=== PATIENT | female | born 1955 | race Caucasian/White ===

== ENCOUNTER 2016-12-13 15:57 | Inpatient (IN) | payer MEDICAID ==
--- NOTE | 2016-12-13 15:58 | ED Physician Chart ---
Chief Complaint/HPI - Patient Information Date Seen:: 12/13/16 Time Seen:: 15:57 Chief Complaint:: chest wall pain History of Present Illness:: 61-year-old female, was cleaning a light fixture in her bathroom and suffered a mechanical fall, brought in by EMS with acute, severe, 10 out of 10, worse with deep inspiration, left posterior chest wall pain that started about 30 minutes prior to arrival after the mechanical fall. Has associated loss of consciousness but is unsure if she hit her head. Has some associated head and neck pain as well. Denies any nausea, vomiting, syncopal episode prior to the fall, palpitations, abdominal pain, acute vision changes. Historian:: Patient Review:: Nurse's Note Reviewed Review of Systems - Review of Systems Other: Complete system review otherwise unremarkable except as noted in history of present illness. Past Medical History - Past Medical History Past Medical History: DM, Other Family History: None Social History: Non Smoker, No Alcohol, No Drug Use, Other Surgical History: other (gastric bypass) Psychiatricy History: Depression, Other (anxiety) Medication: Reviewed Family Medical History - Family Member Mother History Unknown: Yes Physical Exam - Physical Examination Other:: INITIAL VITAL SIGNS: Reviewed by me GENERAL: Alert and interactive. No acute distress HEAD: Head is normocephalic and atraumatic EYES: EOMI. PERRL. No scleral icterus. No conjunctival injection ENT: Moist mucous membranes. NECK: Supple. No masses. Full range of motion RESPIRATORY: No tachypnea. Clear breath sounds bilaterally. No wheezing, rales, or rhonchi CV: Regular rate and rhythm. No murmurs, rubs, or gallops ABDOMEN: Soft, non-distended, non-tender. No guarding. No rebound. No masses. EXTREMITIES: No deformity. No cyanosis. No edema. SKIN: Warm and dry. No obvious rashes. NEUROLOGIC: Alert and oriented. Face is symmetric. Speech is normal. Moves all extremities equally. Motor and sensory distally intact. BACK: There is slight 4 x 4 centimeter area of ecchymosis over the lateral left mid axillary and posterior rib area. It is also tender to palpation. Labs/Radiology/EKG Results - Radiology Results Results: CT HEAD: NAD CT C-SPINE: No evidence of acute fracture sensation. DJD. Small calcification adjacent to the skull base may be due to old trauma or DJD CT CHEST: Fractures of the 8-10th left ribs possible nondisplaced left transverse process fracture at T9. Tiny less than 2% left apical pneumothorax, better seen on C-spine CT Small left effusion - EKG Interpretations Comments:: 12-lead EKG Interpretation by Xiomy Pimentel MD: Sinus bradycardia Rhythm with ventricular rate of 56 beats per minute Normal axis Normal intervals No acute ST or T wave changes. No obvious STEMI ED Septic Shock - . Is Septic Shock (SBP<90, OR Lactate>4 mmol\L) present?: No Reassessment (Disposition) - Reassessment Reassessment:: Patient suffered mechanical fall. Has acute left lateral rib pain worse with deep inspiration. CT indicates rib fractures on the left side of 8,9 and 10 and also left sided T9 transverse process fracture is nondisplaced. There is also less than 2% left -sided pneumothorax. Patient also had recent gastric bypass. Pain medication administration is limited. Discussed the case with Dr. Flores who expressed good understanding of the case. He'll admit the patient for further workup and treatment. We've initiated nasal cannula oxygen for the pneumothorax. We've also administered IV analgesics. Patient is comfortable. No signs of respiratory distress. Discussed all the findings with the patient. Patient admitted to Dr. Flores. Reassessment Condition:: Improved - Diagnosis Diagnosis:: Acute left posterior chest wall pain due to acute rib fractures of the left 8,9 10th ribs. Less than 2% left-sided apical pneumothorax Nondisplaced left-sided transverse process fracture of T9 - Patient Disposition Discharge/Transfer:: Acute Care w/in this hosp Admitted to:: Med/Surg Admitting Medical Physician:: Kendall Flores Time:: 18:10 Condition at Disposition:: Stable
[2016-12-13] MEDS ORDERED: Dexamethasone Sodium Phos 4 mg/mL Vial IM STA (16:13)
[2016-12-13] MEDS ORDERED: Morphine Sulfate 2 mg/mL 1mL Syr IVP ONE (16:13)
[2016-12-13] MEDS ORDERED: Sodium Chloride 0.9% 500 ML IV ONE (16:13)
[2016-12-13] MEDS ORDERED: Dexamethasone Sodium Phos 10 mg/mL PF Vial ONE (16:16)
[2016-12-13] MEDS ORDERED: Morphine Sulfate 2 mg/mL 1mL Syr ONE (16:17)
[2016-12-13] MEDS ORDERED: Dexamethasone Sodium Phos 4 mg/mL Vial IVP STA (16:25)
[2016-12-13 16:33] LABS: % BASOPHILS 0.8 % (0.0-2.0); % EOSINOPHILS 2.3 % (0.0-5.0); % LYMPHOCYTES 33.5 % (20.0-50.0); % MONOCYTES 9.3 % (2.0-10.0); % NEUTROPHILS 54.1 % (40.0-80.0); HEMATOCRIT 39.4 % (35.0-45.0); HEMOGLOBIN 13.4 gm/dL (11.7-15.5); MEAN CELL VOLUME 87.9 fl (81-100); MEAN CORPUSCULAR HEMOGLOBIN 29.8 pg (27.0-31.0); MEAN PLATELET VOLUME 6.8 fl; NEUTROPHILE ABSOLUTE 2.9 Th/cmm (1.8-8.0); PLATELET COUNT 229 Th/cmm (150-400); RED BLOOD COUNT 4.48 Mil/cmm (3.80-5.10); RED CELL DISTRIBUTION WIDTH 13.1 % (11.5-20.0); WHITE BLOOD COUNT 5.2 Th/cmm (4.8-10.8)
[2016-12-13 16:46] LABS: ANION GAP 5.3 (7.0-16.0); BUN - UREA NITROGEN 11 mg/dL (7-25); BUN/CREATININE RATIO 15.7; CALCIUM SERUM 9.1 mg/dL (8.6-10.3); CARBON DIOXIDE 27.6 mEq/L (21.0-31.0); CHLORIDE 107 mEq/L (98-107); CREATININE - SERUM 0.7 mg/dL (0.6-1.2); GLUCOSE 97 mg/dL (70-105); POTASSIUM SERUM 3.9 mEq/L (3.5-5.1); SODIUM SERUM 136 mEq/L (136-145)
[2016-12-13 18:29] VITALS: BP 145/82
[2016-12-13] MEDS ORDERED: Morphine Sulfate 2 mg/mL 1mL Syr IV PRN (18:32)
[2016-12-13 18:37] LABS: URINE BILIRUBIN NEGATIVE (NEGATIVE); URINE BLOOD NEGATIVE (NEGATIVE); URINE COLOR YELLOW; URINE GLUCOSE (UA) NEGATIVE (NEGATIVE); URINE KETONE NEGATIVE (NEGATIVE); URINE PROTEIN NEGATIVE (NEGATIVE); URINE UROBILINOGEN 0.2 E.U./dL (0.2 - 1.0)
[2016-12-13 18:38] LABS: URINE BACTERIA MANY /hpf (NONE SEEN); URINE EPITHELIAL CELLS OCCASIONAL /lpf (FEW); URINE RBC NONE SEEN /hpf (0-5)
[2016-12-13] MEDS ORDERED: Acetaminophen 500 MG TAB PO PRN (18:38)
[2016-12-13] MEDS ORDERED: Morphine Sulfate 2 mg/mL 1mL Syr IVP PRN (22:24)
[2016-12-14] MEDS: Morphine Sulfate 4 mg/mL 1mL Syr IV PRN ×6 (00:45→21:42)
--- NOTE | 2016-12-14 01:53 | History & Physical ---
HISTORY OF PRESENT ILLNESS: This is a 61-year-old female with a history of obesity, status post gastric sleeve last June. She also has history of diabetes, which she says is controlled now after losing weight and has history of lupus which after her menopause has subsided. She was brought to the Emergency Room secondary to a mechanical fall and severe left-sided chest pain and back pain after she fell while she was cleaning a light fixture, and she hit her left side of the chest ____. She is not sure if she hit her head. She denies any nausea, vomiting, or syncopal episodes prior to the fall. No palpitations. No blurry vision. No headaches. She says that she is not sure if she hit her head, but there are no other signs and symptoms such as acute vision change or any problems. PAST MEDICAL HISTORY: As above plus she has had spinal stenosis for which she is being followed by . PAST SURGICAL HISTORY: She is status post tonsillectomy, status post appendectomy, status post vaginal hysterectomy, and status post right arm fracture, surgery for the right arm, and also status post gastric sleeve surgery. ALLERGIES: She states that she gets itching with Tylenol No. 4. SOCIAL HISTORY: She is . She has 7 children. She used to work as a medical receptionist medical assistant. She does not smoke. Drinks occasionally. No drugs. FAMILY HISTORY: She says she was kidnapped so she does not know her family history much. CURRENT MEDICATIONS: Tylenol, doxepin, Lexapro, gabapentin, morphine sulfate, pantoprazole, dexamethasone sodium ____ 1 tab. REVIEW OF SYSTEMS: As above. PHYSICAL EXAMINATION: GENERAL: She is alert and awake, but she is complaining of severe pain, left-sided chest pain, which gets worse with deep breathing. GENERAL: She is alert and awake. VITAL SIGNS: Blood pressure is 134/63, respiratory rate is 18, heart rate is 71, and temperature is 98.1. CHEST: Minimal rhonchi. HEART: Regular rate and rhythm. No murmur, no rub, and no gallop. ABDOMEN: Soft and nontender. EXTREMITIES: Without clubbing, cyanosis, or edema. SIGNIFICANT LABORATORY DATA: WBC count is 5.2, hemoglobin 13.4, hematocrit 39.4, and platelets are 229,000. Her sodium is 136, potassium 3.9, chloride is 107, bicarbonate is 27.6, BUN is 11, creatinine is 0.7, and calcium is 9.1. Urine nitrite positive. Leukocyte esterase is small. CT of the chest shows a fracture of the 8-10th left rib and possible nondisplaced left transverse process fracture at T9, and there is also less than 2% left apical pneumothorax. EKG showed sinus bradycardia rhythm with ventricular rate of 86, normal intervals, and no ST-T elevations. ASSESSMENT AND PLAN: This lady has multiple medical problems including history of spinal stenosis, came with mechanical fall, sustained rib fracture and also T9 transverse process fracture, I believe with small 2% pneumothorax, nondisplaced left transverse process fracture at T9 levels. So, the patient is complaining of severe pain, which is not tolerable to her. She was given morphine and Toradol in the ER. We will continue with the morphine. We will increase the dose of her morphine since she is complaining that the pain is not controlled. We will also give her some Tylenol. We will continue with her home medications. We will give her incentive spirometer. We will repeat the chest x-ray. We will continue with supplemental oxygen, and we will start her on physical therapy and get ____ as soon as possible and watch her closely. JOB# [id number]
--- NOTE | 2016-12-14 08:37 | Admit Criteria Form ---
Admit Criteria Forms - Admit Criteria Diagnosis: RIB FRACTURE Clinical Indications for Admission to Inpatient Care (Place 'X' for any and all applicable criteria): Admission is indicated for ANY ONE of the following (1)(2)(3)(4): [X ]I. 3 or more traumatic rib fractures [ ]II. Flail chest [A](5) [X ]III. Inpatient admission required rather than observation care (Also use Rib Fracture: Observation Care Criteria as appropriate) because of ANY ONE of the following: [ ]1) Pain inhibiting ability to cough or clear airway that is severe or persistent and requires inpatient treatment (eg, frequent parenteral narcotics) [ ]2) Injury (eg, intra-abdominal, vascular, neurologic, pneumothorax) identified that requires inpatient care [ ]3) Rib fracture causing exacerbation of comorbid illness that is severe or persistent (eg, COPD, congestive heart failure) [ ]4) Supplemental oxygen or respiratory treatments for over 24 hours that is performable only in acute inpatient setting [ ]5) Epidural analgesia (6) [ ]6) Immediate inpatient surgery [X ]7) Other condition, treatment or monitoring requiring inpatient admission Extended stay beyond goal length of stay may be needed for (Use Intensive, Intermediate and Telemetry Care Criteria) (1)(15) [ ]a) Flail chest [ ]b) Respiratory insufficiency [ ]c) Concomitant trauma to visceral or thoracic organs [ ]d) Need for chest tube drainage [ ]e) Reduced vital capacity (eg, less than 1.4 liters or 55% predicted) [ ]f) Active comorbidities The original [employer] content created by [employer] has been revised. The portions of the content which have been revised are identified through the use of italic text or in bold, and [facility] has neither reviewed nor approved the modified material. All other unmodified content is copyright [facility]. Please see references footnoted in the original [email or web address] edition 2016 Admit Criteria Met?: Yes
--- NOTE | 2016-12-14 10:36 | Diagnostic Imaging Report ---
Portable chest x-ray HISTORY: Shortness of breath The heart size appears generous. No focal pulmonary processes. No pneumothorax is seen. Atherosclerotic calcination seen in the aortic arch. IMPRESSION: 1. No acute focal pulmonary processes 2. Suggestion of a generous heart size with atherosclerotic vascular changes
--- NOTE | 2016-12-14 10:46 | Diagnostic Imaging Report ---
CT scan of the brain without intravenous contrast HISTORY: Headache, trauma Total DLP equals 586 CTDI equals 32.0 Axial sections were obtained from the base of the skull to the vertex. There is prominence of the ventricular system size along with prominence of cerebral sulci and subarachnoid cisterns reflecting mild atrophy. No acute parenchymal abnormalities. No intracerebral hemorrhage. No mass effect or shift of midline structures. No extra-axial masses or abnormal fluid collections. IMPRESSION: 1. No acute abnormalities 2. Mild cerebral atrophy
--- NOTE | 2016-12-14 10:47 | Diagnostic Imaging Report ---
CT scan cervical spine HISTORY: Pain, trauma Degenerative changes are noted with hypertrophic spur formation seen about the endplates of all vertebrae. Narrowing of all intervertebral disc spaces. No definite acute bony abnormalities. No fractures are seen. The prevertebral soft tissues appear normal. IMPRESSION: 1. No definite acute abnormalities 2. Diffuse degenerative changes
[2016-12-14] MEDS: Escitalopram Oxalate 5 mg Tab PO SCH (12:56)
[2016-12-15] MEDS: Morphine Sulfate 4 mg/mL 1mL Syr IV PRN ×4 (03:38→17:13)
[2016-12-15] MEDS: Escitalopram Oxalate 5 mg Tab PO SCH (08:12)
--- NOTE | 2016-12-15 12:18 | Diagnostic Imaging Report ---
CT scan of the chest without intravenous contrast HISTORY: Pain, trauma Total DLP equals 499 CTDI equals 25.0 Axial sections were obtained from a level above the clavicles down to level below the diaphragm. The heart size is normal. Normal-sized lymph nodes are seen within the mediastinum. Mild atherosclerotic calcification seen in the aortic arch. Mild coronary artery calcification also noted. There is a small left pleural effusion. Mildly displaced fractures involving the left eighth, ninth, 10th ribs posteriorly. Question minimally displaced fracture involving the left transverse process of T9. There is suggestion of a minimal (less than 2%) left apical pneumothorax. This is better delineated on the patient's CT scan of the cervical spine. Limited sections below the diaphragm demonstrate surgical changes in the gastric/. Gastric area. IMPRESSION: 1. Multiple left rib fractures along with a small left pleural effusion. Question minimally displaced fracture involving the left transverse process of T9. 2. Minimal right apical pneumothorax best visualized on images from the CT scan of the cervical spine.
--- NOTE | 2016-12-16 05:23 | Discharge Summary ---
DATE OF DISCHARGE: 12/15/2016 HOSPITAL COURSE: This is a 61-year-old female with a history of ____ gastric sleeve surgery; spinal stenosis; diabetes, which she says is now controlled after losing her weight and also history of lupus, which she says was subsided. She was brought to the ER secondary to a mechanical fall and severe left-sided chest pain and back pain. The fall was a mechanical fall while she was cleaning light fixture and she hit the left side of her chest with the bathtub. In the ER, she was noticed to have left-sided rib fractures, i.e. I think it was left-sided fracture 8, 9 and 10. She was also noticed to have minimally displaced fracture involving the left transverse process of T9. She had no any neurological symptoms; however, the reason she was admitted was a small 2% left apical pneumothorax and a small left pleural effusion. She was admitted for observation. She was given analgesics for the pain control since she could not take oral analgesics because of the gastric sleeve surgery. Her pain was better with morphine and we also used incentive spirometer and her pain was pretty much controlled and then today she was discharged to have followup with Dr. Mcgovern in his office for further care and then she also had told me that she follows with Dr. Lema for her spinal stenosis, so she was advised to also follow up with the neurosurgeon. DISCHARGE DIAGNOSES: Status post mechanical fall, left ribs fracture, small pneumothorax and pleural effusion which resolved on the repeat chest x-ray and minimally displaced fracture involving the left transverse process of T9 and plus the other diagnoses that I mentioned before. The patient was advised to follow with Dr. Mcgovern. JOB# [id number]
== END 2016-12-15 19:00 | DRG 135 ==
LOC: ER 15:57 → MSI 18:10
PROVIDERS: ADMIT Specialist; ATTEND Specialist
DX: S22.42XA Multiple fractures of ribs, left side, initial encounter for closed fracture (principal); S22.079A Unspecified fracture of T9-T10 vertebra, initial encounter for closed fracture; M32.9 Systemic lupus erythematosus, unspecified; J93.83 Other pneumothorax; M48.00 Spinal stenosis, site unspecified; W18.30XA Fall on same level, unspecified, initial encounter; Y93.89 Activity, other specified; Y92.89 Other specified places as the place of occurrence of the external cause; Y99.8 Other external cause status; E11.9 Type 2 diabetes mellitus without complications; F32.9 Major depressive disorder, single episode, unspecified; F41.9 Anxiety disorder, unspecified; E66.9 Obesity, unspecified; Z90.49 Acquired absence of other specified parts of digestive tract; Z90.710 Acquired absence of both cervix and uterus; Z88.6 Allergy status to analgesic agent; Z88.8 Allergy status to other drugs, medicaments and biological substances; Z98.84 Bariatric surgery status; Z68.29 Body mass index [BMI] 29.0-29.9, adult
CPT/HCPCS: 36415-UA; 70450-TC; 71010-TC; 71250-TC; 72125-TC; 80048-TC; 81001-TC; 85025-TC; 93005; 94760; 96374; 96375; C9113; J1885; J2270; J2405; J7040; Z7610

== ENCOUNTER 2017-02-08 19:34 | Emergency (ER) | payer MEDICAID ==
--- NOTE | 2017-02-08 19:53 | ED Physician Chart ---
Chief Complaint/HPI - Patient Information Date Seen:: 02/08/17 Time Seen:: 19:50 Chief Complaint:: R leg pain for about 1 1/2 years. History of Present Illness:: Pt came in by private auto for the above reason. Her R lower extremity involves her R thigh and R lower leg, which is constant and achy. Pain is not aggravated with wt bearing activities. Pt notices more pain during rest at night. Pt has been evaluated and followed with her PCP Dr. Mcgovern. Pt has pending appointment with Dr. Mcgovern tomorrow. Pt is here primarily for pain control. Pt remains ambulatory. No weakness or numbness in R lower extremity. No recent injury or trauma to RLE. Allergies:: Allergies Allergy/AdvReac Type Severity Reaction Status Date / Time cimetidine [From Tagamet] Allergy Verified 02/08/17 19:46 ibuprofen [From Motrin] Allergy Verified 12/13/16 16:10 NSAIDS (Non-Steroidal Allergy Verified 12/13/16 16:09 Anti-Inflamma prochlorperazine Allergy Verified 12/13/16 16:10 [From Compazine] Tetanus Vaccines & Toxoid Allergy Verified 02/08/17 19:46 tramadol Allergy Verified 02/08/17 19:46 PLASTIC TAPE Allergy Uncoded 02/08/17 19:46 Vitals:: see Nurse Note. Historian:: Patient Family MD/PCP:: Dr. Mcgovern LMP:: Postmenopausal. Review:: Nurse's Note Reviewed Review of Systems - Review of Systems General/Constitutional: No fever, No chills, No weakness, No diaphoresis, No edema, No loss of appetite Skin: No skin lesions, No rash, No bruising Head: No headache, No light-headedness Eyes: No loss of vision, No pain, No diplopia ENT: No earache, No nasal drainage, No sore throat, No tinnitus Neck: No neck pain, No swelling, No thyromegaly, No stiffness, No mass noted Cardio Vascular: No chest pain, No palpitations, No edema Pulmonary: No SOB, No cough, No wheezing GI: No nausea, No vomiting, No diarrhea, No pain G/U: No dysuria, No frequency, No hematuria Musculoskeletal: Other (Chronic low back pain. Chronic R leg pain for 1 1/2 years.) Psychiatric: Prior psych history, No depression Hematopoietic: No bruising, No lymphadenopathy Allergic/Immuno: No urticaria, No angioedema Neurological: No syncope, No focal symptoms, No weakness, No paresthesia, No headache, No confusion Past Medical History - Past Medical History Past Medical History: Other (h/o spinal stenosis in cervical and lumbar spine. Pt has been followed by Dr. Lema, neurosurgery.) Family History: None Social History: Non Smoker, No Alcohol, No Drug Use, , Other (lives with her son.) Employment:: unemployed. Surgical History: Appendectomy (about 19 y/a), Hysterectomy (about 6 y/a.), other (Tonsillectomy at age 4, gastric surgery for wt control 06/2016. R wrist surgeries at age 3 and about 2 y/a due to injury.) Psychiatricy History: Depression Medication: Reviewed Family Medical History - Family Member Mother History Unknown: Yes Physical Exam - Physical Examination General/Constitutional: Awake, Well-developed, well-nourished, Alert, No distress, GCS 15, Non-toxic appearing, Ambulatory Other Gen/Cons comments:: Breathes comfortably, speaks clearly, and ambulates without difficulty. Head: Atraumatic Eyes: Lids, conjuctiva normal, PERRL, EOMI Skin: Nl inspection, No rash, No skin lesions, No ecchymosis, Well hydrated, No lymphadenopathy ENMT: External ears, nose nl, Nasal exam nl, Oropharynx nl Neck: Nontender, Full ROM w/o pain, No nuchal rigidity, No mass, No stridor Respiratory: Nl effort/Exclusion, Clear to Auscultation, No Wheeze/Rhonchi/Rales Cardio Vascular: RRR, No murmur, gallop, rubs GI: No tenderness/rebounding/guarding, No organomegaly, Normal BS's, Nondistended, No mass/bruits Other GI comments:: Obese but soft. Other Extremities comments:: RLE: Good ROM of all joints. Vague diffuse tenderness in R thigh and R lower leg. No swelling, erythema, ecchymosis, or open wound. R hip has FROM without tenderness. No leg length discrepancy compared with LLE. Pt can rotate R hip medially and laterally without difficulty. No detectable motor/sensory/vascular deficit. Neuro/Psych: Alert/oriented (oriented x 3.), DTR's symmetric, Normal sensory exam, Normal motor strength, Judgement/insight normal, Mood normal, Normal gait , No focal deficits Other Neuro/Psych comments:: Negative SLR's bilaterally. Misc: No paraspinal tenderness Other Misc comments:: Back is nontender. No CVAT. ED Septic Shock - . Is Septic Shock (SBP<90, OR Lactate>4 mmol\L) present?: No Reassessment (Disposition) - Reassessment Reassessment:: 2124 I was informed by pt's nurse that pt's son Mika arrived. Pt decided to go home immediately and will follow with her PCP Dr. Mcgovern tomorrow, and her son Mika will drive her home. Aftercare instructions have been given. Reassessment Condition:: Improved - Diagnosis Diagnosis:: Chronic R lower extremity pain, consider neuralgia. Stable. - Aftercare/Follow up Instructions Aftercare/Follow-Up Instructions:: Refer to Discharge Instructions Notes:: Continue present care. Drowsiness precautions given with the use of morphine. F/U with Dr. Mcgovern as scheduled tomorrow. Return to ER immediately if condition worsens or if any further questions/problems. Medication Prescribed:: none - Patient Disposition Discharge/Transfer:: Home Time:: 21:20 Condition at Disposition:: Stable, Improved ED Discharge Plan - Patient Disposition Admit/Discharge/Transfer: PT DISCHARGED HOME Instructions: Chronic Pain Management Additional Instructions: KEEP YOUR DR'S APPOINTMENT SCHEDULED. RETURN TO ER FOR MEDICAL EMERGENCIES.
== END 2017-02-08 21:20 | disposition home or self-care (01) ==
LOC: ER 19:34
DX: G89.29 Other chronic pain (principal); M79.661 Pain in right lower leg
CPT/HCPCS: J2270; Z7502